=== PATIENT | male | born 1975 | race African-American/Black ===

== ENCOUNTER 2017-03-28 10:50 | Emergency (ER) | payer OTHER ==
[2017-03-28] MEDS ORDERED: NS 0.9% 1000 ML* 1,000 ML IV ONE (12:24)
[2017-03-28] MEDS ORDERED: Albuterol/Ipratropium NEB.SOL* Albuterol 2.5 MG/Ipratropium 0.5 MG 3 ML INH ONE (12:25)
--- NOTE | 2017-03-28 12:26 | ED ---
Respiratory - HPI Summary HPI Summary: 42 male presents incarcerated from [place] with complaints of productive cough , SOB and green sputum for the past week that has been worsening. Patient is an asthmatic. Has been treated at [facility] with prednisone, flonase and duonebs without much relief. Patient states he does not think this is asthma he knows it is an illness. PMHx significant for HIV, asthma and Hep C. Denies fever but admits chills. Denies nausea/vomiting, chest pain and abdominal pain. Admits to pleuritic chest pain over bronchi/mid chest that worsens with coughing. Admits to some nasal congestion intermittently and headache. No other complaints at this time. - History of Current Complaint Chief Complaint: EDShortnessOfBreath Stated Complaint: ASTHMA ISSUES Time Seen by Provider: 03/28/17 11:29 Hx Obtained From: Patient Onset/Duration: Sudden Onset, Lasting Days - 6, Still Present, Worse Since Timing: Constant Initial Severity: Moderate Current Severity: None Pain Intensity: 0 Character: Wheezing, Cough (Productive) - gren/yellow sputum, some brown, Dyspnea at Rest, Dyspnea on Exertion Sputum Amount: Small Sputum Color: Yellow, Green Aggravating Factor(s): URI, Deep Breaths Alleviating Factor(s): Neb. Bronchodilators (Frequency Of Use), Steriods Associated Signs and Symptoms: SOB, URI, Wheezing, Chest Pain with Cough, Nasal Congestion - Risk Factors Pulmonary Embolism Risk Factors: Negative Cardiac Risk Factors: Negative Pseudomonas Risk Factors: Negative - Allergy/Home Medications Allergies/Adverse Reactions: Allergies Allergy/AdvReac Type Severity Reaction Status Date / Time Azithromycin Allergy Unknown Verified 03/28/17 12:17 Reaction Details PMH/Surg Hx/FS Hx/Imm Hx Endocrine/Hematology History: Reports: Hx Blood Disorders - hep c and HIV Cardiovascular History: Denies: Hx Hypertension, Other Cardiovascular Problems/Disorders Respiratory History: Reports: Hx Asthma - Surgical History Surgery Procedure, Year, and Place: n/a - Immunization History Date of Tetanus Vaccine: UTD Immunizations Up to Date: Yes Infectious Disease History: No Infectious Disease History: Denies: Traveled Outside the [place] in Last 30 Days - Family History Known Family History: Positive: None - Social History Alcohol Use: None Substance Use Type: Reports: Marijuana Smoking Status (MU): Current Some Day Smoker Review of Systems Positive: Chills Eyes: Negative ENT: Negative Positive: Chest Pain - related to cough Positive: Shortness Of Breath, Cough Gastrointestinal: Negative Musculoskeletal: Negative Skin: Negative Positive: Headache All Other Systems Reviewed And Are Negative: Yes Physical Exam Triage Information Reviewed: Yes Vital Signs On Initial Exam: Initial Vitals Temp Pulse Resp BP Pulse Ox 98.0 F 71 22 140/91 97 03/28/17 11:11 03/28/17 11:11 03/28/17 11:11 03/28/17 11:11 03/28/17 11:11 O2 was at 100% throughout visit, normal vitals no hypoxic non febrile Vital Signs Reviewed: Yes Appearance: Positive: Well-Appearing, No Pain Distress, Well-Nourished Skin: Positive: Warm, Skin Color Reflects Adequate Perfusion, Dry. Negative: Cold, Numb, Cyanosis @, Diaphoretic, Pale Head/Face: Positive: Normal Head/Face Inspection Eyes: Positive: Normal, EOMI, DE, Conjunctiva Clear ENT: Positive: Hearing grossly normal, Pharynx normal, Pharyngeal erythema, Nasal congestion, TMs normal Neck: Positive: Supple, Nontender, No Lymphadenopathy Respiratory/Lung Sounds: Positive: Clear to Auscultation, Breath Sounds Present , Rhonchi - bronchial, Wheezes - significant wheezing throughout, bronchial breath sounds,audible without stethoscope,, Other - take breaks when talking to take deep breath. Negative: Rales Cardiovascular: Positive: Normal, RRR, Pulses are Symmetrical in both Upper and Lower Extremities - 2+. Negative: Murmur, Rub Abdomen Description: Positive: Nontender, Soft Bowel Sounds: Positive: Present Musculoskeletal: Positive: Normal, Strength/ROM Intact Neurological: Positive: Normal, Sensory/Motor Intact, Alert, Oriented to Person Place, Time Psychiatric: Positive: Affect/Mood Appropriate - Alia Coma Scale Coma Scale Total: 15 Diagnostics - Vital Signs Vital Signs Temp Pulse Resp BP Pulse Ox 03/28/17 12:00 71 160/109 99 03/28/17 11:30 67 22 140/81 98 03/28/17 11:13 71 98 03/28/17 11:12 140/91 03/28/17 11:11 98.0 F 71 22 140/91 97 - Laboratory Result Diagrams: 03/28/17 12:35 03/28/17 12:35 Lab Statement: Any lab studies that have been ordered have been reviewed, and results considered in the medical decision making process. - Radiology chest Xray Interpretation: No Acute Changes - NO EVIDENCE FOR ACTIVE CARDIOPULMONARY DISEASE. Radiology Interpretation Completed By: Radiologist Re-Evaluation - Re-Evaluation First Eval Re-Evaluation Time: 13:10 Change: Improved - had improvement after duoneb with lung sounds, wheezing still present however O2 100% patient did not want another duoneb as he feels on difference Disposition - Course Course Of Treatment: given duo neb. full work up obtained and chest x-ray negative. unremarkable results. patient does have hep c elevating liver enzymes on lab results. patient appears to be comfortable and not in any respiratory distress. good vitals and not hypoxic. given antibitoic to take especially due to patient HIV history. continue duoneb and prednisone. fluids, rest. Aware of worsening signs and symptoms. No concern for other cardiac or respiratory emergent etiology at this time. Bronchitis that is exacerbated by asthma and immunocomprimised. Follow up with [facility] daily. - Differential Dx - Cardiopulmonary Differential Diagnoses - Cardiopulmonary: Asthma, Bronchitis, Influenza, Lower Resp Infection, Pneumothorax, Pulmonary Edema, Pulmonary Embolism, Tuberculosis - Diagnoses Provider Diagnoses: Bronchitis with asthma, acute Discharge - Discharge Plan Condition: Stable Disposition: HOME Patient Education Materials: Upper Respiratory Infection (ED), Acute Bronchitis (ED) Referrals: Zahira NOEL,Eloy Ayala [Primary Care Provider] - Additional Instructions: Take antibiotic (Doxycycline) twice daily for ten days (100mg) as directed. Please drink plenty of fluids and get plenty of rest. Continue prednisone and duo neb. continue nasal spray as well. Follow up with PCP within 3-5 days. If you develop fevers, symptoms persist or worsen please return.
[2017-03-28 12:48] LABS: Hematocrit 42 % (42-52); Hemoglobin 13.9 g/dl (14.0-18.0); Mean Corpuscular HGB Conc 33 g/dl (31-36); Mean Corpuscular Hemoglobin 31 pg (27-31); Mean Corpuscular Volume 92 fL (80-94); Mean Platelet Volume 10 um3 (7.4-10.4); Red Blood Count 4.55 10^6/ul (4.0-5.4); Red Cell Distribution Width 15 % (10.5-15); White Blood Count 8.2 10^3/ul (3.5-10.8)
[2017-03-28 13:05] LABS: Albumin 4.2 g/dL (3.2-5.2); BUN/Creatinine Ratio 12.6 (8-20); EGFR African American 93.9 (>60); Globulin 4.5 g/dL (2-4); Potassium 4.9 mmol/L (3.5-5.0); Total Bilirubin 0.4 mg/dL (0.2-1.0); Total Protein 8.7 g/dL (6.4-8.9)
--- NOTE | 2017-03-28 13:16 | RAD ---
INDICATION: Chest pain, evaluate for pneumonia. COMPARISON: There are no prior studies available for comparison. TECHNIQUE: Dual-energy PA and lateral views of the chest were obtained. FINDINGS: The heart is within normal limits in size. Mediastinal and hilar contours appear within normal limits. The lungs are clear. No pleural effusion is present. IMPRESSION: NO EVIDENCE FOR ACTIVE CARDIOPULMONARY DISEASE.
[2017-03-28] MEDS ORDERED: DOXYcycline CAP(*) 100 MG PO ONE (15:44)
[2017-03-28 17:06] VITALS: BP 130/81
== END 2017-03-28 17:10 | disposition home or self-care (01) ==
LOC: ED 10:50
DX: J20.9 Acute bronchitis, unspecified (principal); J45.998 Other asthma; R05 Cough; R06.00 Dyspnea, unspecified; R07.9 Chest pain, unspecified; Z72.0 Tobacco use
CPT/HCPCS: 36415; 71020; 80053; 83605; 84484; 85025; 94640; 99283; A9270-GY